=== PATIENT | female | born 1960 | race Caucasian/White ===

== ENCOUNTER → 2016-05-13 | Outpatient (CLI) | payer BC | LOC: LAB 14:58 | DX: E03.4 Atrophy of thyroid (acquired) (principal); I10 Essential (primary) hypertension ==

== ENCOUNTER → 2016-08-24 | Outpatient (CLI) | payer BC | LOC: LAB 14:43 | DX: E03.4 Atrophy of thyroid (acquired) (principal) ==

== ENCOUNTER 2017-02-05 21:43 | Emergency (ER) | payer BC ==
[~2017-02-05] VITALS: Ht 157.5 cm; Wt 65.9 kg
[2017-02-05] MEDS ORDERED: ATIVAN0.5 MG PO (21:57)
[2017-02-05] MEDS ORDERED: EC-NAPROSYN375 MG PO (21:57)
[2017-02-05] MEDS ORDERED: LIPITOR20 M2 PO (21:57)
[2017-02-05] MEDS ORDERED: CELEXA 20MG20 MG/TA1 PO (21:58)
[2017-02-05] MEDS ORDERED: PRILOSEC OTC20 MG PO (21:58)
[2017-02-05] MEDS ORDERED: HCTZ 25MG25 MG PO (21:58)
[2017-02-05] MEDS ORDERED: LEVOTHYROXINE0.05 MG PO (21:58)
[2017-02-05 22:55] VITALS: BP 132/80
== END 2017-02-05 22:55 | disposition home or self-care (01) ==
LOC: ED 21:43
DX: S91.201A Unspecified open wound of right great toe with damage to nail, initial encounter (principal); L60.8 Other nail disorders; W22.8XXA Striking against or struck by other objects, initial encounter; Y92.009 Unspecified place in unspecified non-institutional (private) residence as the place of occurrence of the external cause; I10 Essential (primary) hypertension; E03.9 Hypothyroidism, unspecified; F41.9 Anxiety disorder, unspecified; F32.9 Major depressive disorder, single episode, unspecified; E78.00 Pure hypercholesterolemia, unspecified; K21.9 Gastro-esophageal reflux disease without esophagitis
CPT/HCPCS: 90715; A4649; A6402

== ENCOUNTER → 2017-03-04 | Outpatient (CLI) | payer BC ==
[2017-02-05 22:55] VITALS: BP 132/80
[~2017-03-04] MED LIST: ATIVAN0.5 MG PO; CELEXA 20MG20 MG/TA1 PO; EC-NAPROSYN375 MG PO; HCTZ 25MG25 MG PO; LEVOTHYROXINE0.05 MG PO; LIPITOR20 M2 PO; PRILOSEC OTC20 MG PO
[2017-03-04 14:06] LABS: BUN/CREATININE RATIO 23.8 (6.0-26.0); CALCIUM 9.7 mg/dL (8.4-10.2); POTASSIUM 3.8 mmol/L (3.6-5.0)
== END ==
LOC: LAB 13:08
PROVIDERS: Family Medicine
DX: E03.4 Atrophy of thyroid (acquired) (principal); I10 Essential (primary) hypertension

== ENCOUNTER → 2017-08-31 | Outpatient (CLI) | payer BC | LOC: LAB 14:52 | DX: E03.9 Hypothyroidism, unspecified (principal) ==

== ENCOUNTER → 2018-03-14 | Outpatient (CLI) | payer BC ==
[2018-03-14 14:59] LABS: EOS % 0.3 % (1.0-5.0); HEMATOCRIT 43.7 % (37.0-47.0); HEMOGLOBIN 14.7 g/dL (12.5-16.0); LYMPH# 1.3 (1.50-4.00); MEAN CELL VOLUME 87 fl (78-100); MEAN CORPUSCULAR HEMOGLOBIN 29 pg (27-31); MEAN CORPUSCULAR HGB CONC 34 g/dL (33-37); MEAN PLATELET VOLUME 11.3 fl (7.4-10.4); MONO # 0.4 (0.20-0.80); NEU # 5.5 (1.40-6.50); PLATELET COUNT 203 K/mm3 (130-400); RED BLOOD COUNT 5.01 M/mm3 (4.10-5.30); RED CELL DISTRIBUTION WIDTH 13.7 % (11.5-14.5); WHITE BLOOD COUNT 7.3 K/mm3 (4.8-10.8)
[2018-03-14 15:23] LABS: CALCIUM 9.9 mg/dL (8.4-10.2); POTASSIUM 3.6 mmol/L (3.6-5.0)
== END ==
LOC: LAB 14:27
PROVIDERS: Family Medicine
DX: E03.9 Hypothyroidism, unspecified (principal); E78.2 Mixed hyperlipidemia; I10 Essential (primary) hypertension

== ENCOUNTER → 2019-02-26 | Outpatient (CLI) | payer BC | LOC: LAB 11:38 | DX: E03.4 Atrophy of thyroid (acquired) (principal) ==

== ENCOUNTER → 2020-03-13 | Outpatient (CLI) | payer SELFPAY | LOC: LAB 14:07 | DX: E03.9 Hypothyroidism, unspecified (principal) ==

== ENCOUNTER → 2020-10-03 | Outpatient (CLI) | payer SELFPAY | LOC: LAB 12:28 | DX: Z86.39 Personal history of other endocrine, nutritional and metabolic disease (principal) ==

== ENCOUNTER → 2021-04-15 | Outpatient (CLI) | payer SELFPAY | LOC: LAB 10:38 | DX: E03.4 Atrophy of thyroid (acquired) (principal) ==

== ENCOUNTER → 2022-05-11 | Outpatient (CLI) | payer SELFPAY ==
[2022-05-11 23:11] LABS: PTH,INTACT 54.2 pg/mL (6.6-88.9)
== END ==
LOC: LAB 12:53
PROVIDERS: Family Medicine
DX: R74.8 Abnormal levels of other serum enzymes (principal)

== ENCOUNTER → 2023-07-06 | Outpatient (CLI) | payer SELFPAY ==
[2023-07-06 15:16] LABS: BASO # 0.02 K/mm3 (0.02-0.10); EOS # 0.07 K/mm3 (0.04-0.40); EOS % 0.7 % (1.0-5.0); HEMATOCRIT 44.8 % (37.0-47.0); HEMOGLOBIN 14.6 g/dL (12.5-16.0); LYMPH# 2.57 K/mm3 (1.50-4.00); MEAN CELL VOLUME 83 fl (78-100); MEAN CORPUSCULAR HEMOGLOBIN 27 pg (27-31); MEAN CORPUSCULAR HGB CONC 33 g/dL (33-37); MEAN PLATELET VOLUME 11.2 fl (7.4-10.4); MONO # 0.55 K/mm3 (0.20-0.80); NEU # 7.34 K/mm3 (1.40-6.50); PLATELET COUNT 269 K/mm3 (130-400); RED BLOOD COUNT 5.37 M/mm3 (4.10-5.30); WHITE BLOOD COUNT 10.6 K/mm3 (4.8-10.8)
[2023-07-06 15:26] LABS: ALBUMIN 4.3 g/dL (3.4-4.8)
[2023-07-06 15:28] LABS: TOTAL PROTEIN 7.5 g/dL (6.2-8.1)
[2023-07-06 15:30] LABS: TOTAL BILIRUBIN 0.3 mg/dL (0.2-1.2)
[2023-07-06 16:07] LABS: CALCIUM 9.9 mg/dL (8.3-10.5)
== END ==
LOC: LAB 14:54
PROVIDERS: Nurse Practitioner
DX: Z00.00 Encounter for general adult medical examination without abnormal findings (principal)

== ENCOUNTER → 2024-07-26 | Outpatient (CLI) | payer SELFPAY ==
[2024-07-26 17:01] LABS: BASO # 0.03 K/mm3 (0.02-0.10); EOS # 0.11 K/mm3 (0.04-0.40); EOS % 1.3 % (1.0-5.0); HEMATOCRIT 47.3 % (37.0-47.0); HEMOGLOBIN 15.5 g/dL (12.5-16.0); LYMPH# 2.26 K/mm3 (1.50-4.00); MEAN CELL VOLUME 85 fl (78-100); MEAN CORPUSCULAR HEMOGLOBIN 28 pg (27-31); MEAN CORPUSCULAR HGB CONC 33 g/dL (33-37); MEAN PLATELET VOLUME 10.6 fl (7.4-10.4); MONO # 0.52 K/mm3 (0.20-0.80); NEU # 5.81 K/mm3 (1.40-6.50); PLATELET COUNT 299 K/mm3 (130-400); RED BLOOD COUNT 5.54 M/mm3 (4.10-5.30); RED CELL DISTRIBUTION WIDTH 13.4 % (11.5-14.5); WHITE BLOOD COUNT 8.8 K/mm3 (4.8-10.8)
[2024-07-26 17:06] LABS: ALBUMIN 4.3 g/dL (3.4-4.8)
[2024-07-26 17:07] LABS: CALCIUM 9.6 mg/dL (8.3-10.5)
[2024-07-26 17:08] LABS: TOTAL PROTEIN 7.5 g/dL (6.2-8.1)
[2024-07-26 17:10] LABS: TOTAL BILIRUBIN 0.5 mg/dL (0.2-1.2)
== END ==
LOC: LAB 16:44
PROVIDERS: Nurse Practitioner
DX: Z00.00 Encounter for general adult medical examination without abnormal findings (principal)

== ENCOUNTER → 2024-07-29 | Outpatient (CLI) | payer SELFPAY | LOC: LAB 08:45 | DX: E87.6 Hypokalemia (principal) ==